=== PATIENT | male | born 1995 | race African-American/Black ===

== ENCOUNTER 2019-04-01 21:05 | Inpatient (IN) | payer OTHER ==
--- NOTE | 2019-04-01 21:19 | ER Document Report ---
ED Medical Screen (RME) - General Chief Complaint: Possible Overdose Stated Complaint: POSSIBLE OVER DOSE Time Seen by Provider: 04/01/19 21:14 Mode of Arrival: Wheelchair Information source: Patient, Relative Notes: 23-year-old male presented to ED for attempted suicide with 2 bottles of Robitussin for Marky and 1450 mg Benadryl tablets tonight. and [id number] state that he was unconscious when he first got here but he is waking up more the longer he stayed here. states that the gentleman has frequent thoughts of suicide. states that they were supposed to go to a [employer] but he did not want to go so the and [id number] went to the green party came home and found him unconscious. His face was in the litter [place] and he had pulled the towel rack over on top of him. Family states that he was having a full-blown seizure when they came home from the green party. He was report biting on his tongue diaphoretic and his eyes were rolled back in his head. states that he did not have any incontinence of urine or stool he did throw up in his hands were clenched very tight. He does have a history of PTSD and was discharged from the [facility] with other than honorable discharge I have greeted and performed a rapid initial assessment of this patient. A comprehensive ED assessment and evaluation of the patient, analysis of test results and completion of medical decision making process will be conducted by an additional ED providers.
[2019-04-01 21:56] LABS: ABSOLUTE LYMPHOCYTES (AUTO) 1.3 10^3/uL (0.5-4.7); ABSOLUTE MONOCYTES (AUTO) 0.7 10^3/uL (0.1-1.4); ABSOLUTE NEUT (AUTO) 8.2 10^3/uL (1.7-8.2); BASOPHILS % (AUTO) 0.4 % (0-2); EOSINOPHILS % (AUTO) 0.1 % (0-6); HEMOGLOBIN 14.9 g/dL (13.5-17.0); LYMPHOCYTES % (AUTO) 12.6 % (13-45); MEAN CORPUSCULAR HGB CONC 33.1 g/dL (32.0-36.0); MEAN CORPUSCULAR VOLUME 88 fl (80-97); MONOCYTES % (AUTO) 6.9 % (3-13); PLATELET COUNT 342 10^3/uL (150-450); RED BLOOD COUNT 5.15 10^6/uL (4.35-5.55); RED CELL DISTRIBUTION WIDTH 12.5 % (11.5-14.0); TOTAL CELLS COUNTED % (AUTO) 100 %; WHITE BLOOD COUNT 10.3 10^3/uL (4.0-10.5)
[2019-04-01 22:14] LABS: BLOOD UREA NITROGEN 8 mg/dL (7-20); CALCIUM 9.7 mg/dL (8.4-10.2); GLUCOSE 88 mg/dL (75-110)
[2019-04-01 22:15] LABS: ACETAMINOPHEN < 10 ug/mL (10-30); ALBUMIN 4.6 g/dL (3.5-5.0); ALCOHOL < 10 mg/dL (NONE DETECTED); ALKALINE PHOSPHATASE 60 U/L (38-126); ANION GAP 9 (5-19); ASPARTATE AMINO TRANSFERASE 25 U/L (17-59); BILIRUBIN,DIRECT 0.1 mg/dL (0.0-0.4); BILIRUBIN,TOTAL 0.3 mg/dL (0.2-1.3); CARBON DIOXIDE 27 mmol/L (22-30); CHLORIDE 105 mmol/L (98-107); POTASSIUM 3.9 mmol/L (3.6-5.0); SALICYLATE < 1.0 mg/dL (2.0-20.0); TOTAL PROTEIN 7.5 g/dL (6.3-8.2)
--- NOTE | 2019-04-01 23:15 | EKG REPORT ---
SEVERITY:- BORDERLINE ECG - SINUS TACHYCARDIA BORDERLINE T WAVE ABNORMALITIES : Confirmed by: Tomy Jo MD 01-Apr-2019 23:15:26
[2019-04-01 23:42] LABS: APPEARANCE,URINE CLOUDY; BILIRUBIN,URINE NEGATIVE (NEGATIVE); COLOR,URINE YELLOW; GLUCOSE, URINE NEGATIVE (NEGATIVE); KETONES,URINE TRACE mg/dL (NEGATIVE); LEUKOCYTE ESTERASE,URINE NEGATIVE (NEGATIVE); NITRITE,URINE NEGATIVE (NEGATIVE); PROTEIN,URINE 100 mg/dL (NEGATIVE); URINE SPECIFIC GRAVITY 1.025; UROBILINOGEN,URINE NEGATIVE mg/dL (<2.0)
[2019-04-01] MEDS ORDERED: LORAZEPAM INJ 2 MG/1 ML VIAL IV ONE (23:46)
[2019-04-01 23:57] LABS: URINE AMPHETAMINES SCREEN NEGATIVE; URINE BARBITURATES SCREEN NEGATIVE; URINE BENZODIAZEPINES SCREEN NEGATIVE; URINE COCAINE SCREEN NEGATIVE; URINE MARIJUANA (THC) SCREEN UNCONFIRMED POSITIVE; URINE METHADONE SCREEN NEGATIVE; URINE PHENCYCLIDINE SCREEN UNCONFIRMED POSITIVE
[2019-04-01] MEDS: LORAZEPAM INJ 2 MG/1 ML VIAL ONE (23:57)
[2019-04-02] MEDS ORDERED: NORMAL SALINE 1000 ML 1,000 ML IV ONE (00:04)
[2019-04-02] MEDS ORDERED: LORAZEPAM INJ 2 MG/1 ML VIAL IV ONE (00:32)
[2019-04-02] MEDS: LORAZEPAM INJ 2 MG/1 ML VIAL ONE (00:46)
--- NOTE | 2019-04-02 01:16 | ER Document Report ---
Entered by EVELYN SWANSON SCRIBE 04/01/19 [id number] Acting as scribe for:GABE MAYA DO ED Psych Disorder / Suicide - General Chief Complaint: Overdose Stated Complaint: POSSIBLE OVER DOSE Time Seen by Provider: 04/01/19 21:14 Mode of Arrival: Wheelchair Information source: Relative Cannot obtain history due to: Altered mental status Notes: Patient is a 23-year-old male who presents to the emergency department today for an overdose of "#14 50mg Benadryl, 2 bottles of children's Robitussin, and one four pat" per family. Family states that the patient has been depressed for quite some time and frequently takes Robitussin and Benadryl "to get high". Patient is hallucinating and is unable to really provide any meaningful history. Family states that the patient has never explicitly stated that he is attempting to kill himself however they state that he has mentioned on multiple occasions that he "would not mind if he never woke up" from the drugs. Family reports that they left the patient home alone today at 5 PM to go to a [employer], they returned at 7:30 PM the same night to the patient "face down in a litter box actively seizing". Family describes the seizure as the "patient was on the floor, eyes rolled back in his head, jaw was clenched, and he was shaking". Family states the patient had two more seizures prior to arrival here. They state that they "picked him up and put him in the car and brought him here because he does not have insurance and they did not want to get a bill for the ambulance." Family reports that the patient drinks occasionally and has never been in alcohol withdrawal to their knowledge. TRAVEL OUTSIDE OF THE [place] IN LAST 30 DAYS: No - Related Data Allergies/Adverse Reactions: No Known Allergies Allergy (Unverified 04/02/19 00:19) Past Medical History - General Information source: Relative Cannot obtain history due to: Altered mental status - Social History Smoking Status: Current Every Day Smoker Cigarette use (# per day): No - vape Chew tobacco use (# tins/day): No Frequency of alcohol use: Occasional Drug Abuse: Marijuana Lives with: Family, Spouse/Significant other Family History: Reviewed & Not Pertinent Patient has suicidal ideation: Yes Patient has homicidal ideation: No Psychiatric Medical History: Reports: Hx Depression Past Surgical History: Reports: Hx Oral Surgery - wisdom teeth extracted Review of Systems - Review of Systems -: Yes ROS unobtainable due to patient's medical condition - Altered mental status Physical Exam - Vital signs Vitals: Temp Pulse Resp BP Pulse Ox 98.1 F 84 16 127/92 H 99 04/01/19 23:15 04/01/19 23:15 04/01/19 23:15 04/01/19 23:15 04/01/19 23:15 Interpretation: Tachycardic - General General appearance: Alert In distress: Mild - Respiratory Respiratory status: No respiratory distress Chest status: Nontender Breath sounds: Normal - Cardiovascular Rhythm: Regular, Tachycardia - Abdominal Inspection: Normal Tenderness: Nontender - Back Back: Normal - Extremities General upper extremity: Normal inspection, Nontender, Normal color, Normal ROM, Normal temperature General lower extremity: Normal inspection, Nontender, Normal color, Normal ROM, Normal temperature, Normal weight bearing. No: Toi's sign - Neurological Cognition: Confused [place] Coma Scale Eye Opening: Spontaneous Roberto Coma Scale Verbal: Confused [place] Coma Scale Motor: Obeys Commands [place] Coma Scale Total: 14 Speech: Normal - Psychological Associated symptoms: Confused, Flat affect, Visual hallucinations - Skin Skin Moisture: Diaphoretic Course - Re-evaluation Re-evalutation: 04/02/19 00:25 Patient discussed with area development consultant, Dr. Boss. Recommends admission to ICU. States to discuss with Dr. Tracy. 04/02/19 00:[address] Tracy. Will be admitted to ICU. Patient is a 23-year-old male who apparently took fourteen Benadryl 50mg tablets, 2 bottles of Robitussin, for local, and possibly Kratom prior to arrival. Patient is able to answer questions at times and then appears that he is hallucinating in the room. Patient had seizures prior to arrival. Some tremulousness in the emergency department but no seizure activity. He is protecting his airway. EKG with QTC of 460 and then 470. No QRS prolongation. QRS is 98 both EKGs done so far. Patient was discussed with poison control who recommended seizure precautions, Ativan as needed, admission to ICU. Patient was discussed with area development consultant and hospitalist and will be admitted. Seizure precautions in place. Ativan 2 mg has been given so far. No seizure activity. Protecting airway. Vitals otherwise stable. - Vital Signs Vital signs: Temp Pulse Resp BP Pulse Ox 98.1 F 84 22 H 137/74 H 99 04/02/19 00:57 04/01/19 23:15 04/02/19 00:03 04/02/19 00:01 04/02/19 00:03 - Laboratory Result Diagrams: 04/01/19 21:46 04/01/19 21:46 Laboratory results interpreted by me: 04/01/19 04/01/19 04/01/19 21:30 21:46 21:46 Lymph % (Auto) 12.6 L Seg Neutrophils % 80.0 H Creatine Kinase Urine Protein 100 H Urine Ketones TRACE H Urine Ascorbic Acid 40 H Salicylates < 1.0 L Acetaminophen < 10 L 04/01/19 21:46 Lymph % (Auto) Seg Neutrophils % Creatine Kinase 171 H Urine Protein Urine Ketones Urine Ascorbic Acid Salicylates Acetaminophen Critical Care Note - Critical Care Note Total time excluding time spent on procedures (mins): 75 - Overdose, multiple re -evaluations, coronation with area development consultant, coordination of admission, counseling patient and family Discharge - Discharge Clinical Impression: Overdose Qualifiers: Encounter type: initial encounter Injury intent: undetermined intent Qualified Code(s): T50.904A - Poisoning by unspecified drugs, medicaments and biological substances, undetermined, initial encounter Depression Qualifiers: Depression Type: unspecified Qualified Code(s): F32.9 - Major depressive disorder, single episode, unspecified Condition: Stable Disposition: ADMITTED INPATIENT Admitting Provider: Rossana (Hospitalist) Unit Admitted: ICU I personally performed the services described in the documentation, reviewed and edited the documentation which was dictated to the scribe in my presence, and it accurately records my words and actions.
[2019-04-02] MEDS ORDERED: MAG HYDROX/AL HYDROX/SIMETH SUSP 30 ML UDCUP PO PRN (02:09)
[2019-04-02] MEDS ORDERED: ONDANSETRON HCL INJ/PF 4 MG/2 ML SDV IV PRN (02:09)
[2019-04-02] MEDS ORDERED: MAGNESIUM HYDROXIDE SUSP 30 ML UDCUP PO PRN (02:09)
[2019-04-02] MEDS ORDERED: DIAZEPAM INJ 10 MG/2 ML DISP.SYRIN IV PRN (02:12)
[2019-04-02] MEDS ORDERED: ACETAMINOPHEN 325 MG TABLET PO PRN (02:12)
[2019-04-02] MEDS ORDERED: ACETAMINOPHEN 650 MG SUPP.RECT PR PRN (02:12)
[2019-04-02] MEDS ORDERED: LEVALBUTEROL HCL NEB 0.63 MG/3 ML AMPUL NEB PRN (02:12)
[2019-04-02] MEDS ORDERED: NICOTINE 21 MG/24 HR PATCH.TD24 TD PRN (02:12)
--- NOTE | 2019-04-02 03:45 | PDOC H&P ---
History of Present Illness Admission Date/PCP: 04/02/19 01:24 No local PCP Patient complains of: Intentional overdose History of Present Illness: ISABELL NEW is a 23 year old male who took an intentional overdose of 700 mg of Benadryl and 2 full bottles of children's Robitussin and a another unknown agent while at home in front of his family. He was reportedly taking the medication to get high and according to family members he has never been suicidal though he has expressed that he would not mind if he were to while taking drugs. Sometime later after ingestion of the drugs noted above, he began having tonic-clonic seizures with loss of responsiveness, witnessed by several family members. Family members and loaded him into the car and brought him to the hospital. Patient is hallucinating and unable to provide meaningful input into his medical status. They deny prior similar episodes of seizure although his abuse of medications is frequent. They have not identified any other aggravating or ameliorating factors for the patient's acute seizure activity. Past Medical History Past Medical History: Due to the patient's current hallucinations and encephalopathic status all information is obtained from the best available sources including family members and records. Cardiac Medical History: Denies: Coronary Artery Disease, Hypertension Pulmonary Medical History: Denies: Asthma, Chronic Obstructive Pulmonary Disease (COPD) EENT Medical History: Denies: Cataracts, Nose - Allergic rhinitis Neurological Medical History: Denies: Multiple Sclerosis, Seizures Endocrine Medical History: Denies: Diabetes Mellitus Type 1, Hyperthyroidism, Hypothyroidism Renal/ Medical History: Denies: Chronic Kidney Disease, Nephrolithiasis Malignancy Medical History: Reports: None GI Medical History: Denies: Cirrhosis, Hepatitis Musculoskeltal Medical History: Denies: Arthritis, Gout Skin Medical History: Denies: Eczema, Psoriasis Psychiatric Medical History: Reports: Depression, Substance Abuse, Tobacco Dependency Denies: Alcohol Dependency Traumatic Medical History: Reports: None Hematology: Denies: Anemia, Bleeding Tendencies Infectious Medical History: Reports: None Past Surgical History Past Surgical History: Due to the patient's current hallucinations and encephalopathic status all information is obtained from the best available sources including family members and records. Past Surgical History: Reports: None Social History Lives with: Family, Spouse/Significant other Smoking Status: Current Every Day Smoker Electronic Cigarette use?: Yes Frequency of Alcohol Use: Rare Hx Recreational Drug Use: Yes Drugs: Marijuana Hx Prescription Drug Abuse: No Past Social History Note: Due to the patient's current hallucinations and encephalopathic status all information is obtained from the best available sources including family members and records. Family History Family History: Reviewed & Not Pertinent, Hypertension Family History: Due to the patient's current hallucinations and encephalopathic status all information is obtained from the best available sources including family members and records. Parental Family History Reviewed: Yes Children Family History Reviewed: No Sibling(s) Family History Reviewed.: Yes Medication/Allergy Allergies/Adverse Reactions: No Known Allergies Allergy (Unverified 04/02/19 00:19) Review of Systems ROS unobtainable: Due to mental status - Acute encephalopathy with hallucinations Physical Exam Vital Signs: Temp Pulse Resp BP Pulse Ox 98.1 F 84 13 137/74 H 99 04/02/19 00:57 04/01/19 23:15 04/02/19 01:00 04/02/19 00:01 04/02/19 01:00 Intake & Output 03/31/19 04/01/19 04/02/19 23:59 23:59 23:59 Intake Total 1000 Balance 1000 Weight 63.503 kg General appearance: PRESENT: no acute distress, cooperative - Reasonably cooperative except when hallucinating, other - Actively hallucinating Head exam: PRESENT: atraumatic, normocephalic Eye exam: PRESENT: conjunctiva pink. ABSENT: conjunctival injection, scleral icterus Ear exam: PRESENT: normal external ear exam. ABSENT: bleeding, drainage Mouth exam: PRESENT: dry mucosa, neck supple Neck exam: ABSENT: thyromegaly, tracheal deviation Respiratory exam: PRESENT: clear to auscultation wen, symmetrical, unlabored Cardiovascular exam: PRESENT: RRR. ABSENT: clicks, gallop, rubs Pulses: PRESENT: normal radial pulses, normal dorsalis pedis pul Vascular exam: PRESENT: normal capillary refill. ABSENT: pallor GI/Abdominal exam: PRESENT: normal bowel sounds, soft Rectal exam: PRESENT: deferred Extremities exam: ABSENT: joint swelling, pedal edema Musculoskeletal exam: ABSENT: deformity, dislocation Neurological exam: PRESENT: altered - Hallucinating, other - Disoriented Psychiatric exam: PRESENT: depressed, other - Blunted affect Skin exam: PRESENT: dry, intact, warm. ABSENT: jaundice, rash, urticaria Results Laboratory Results: 04/01/19 21:46 04/01/19 21:46 04/01/19 04/01/19 04/01/19 21:30 21:46 21:46 WBC 10.3 RBC 5.15 Hgb 14.9 Hct 45.0 MCV 88 MCH 29.0 MCHC 33.1 RDW 12.5 Plt Count 342 Seg Neutrophils % 80.0 H Sodium 141.2 Potassium 3.9 Chloride 105 Carbon Dioxide 27 Anion Gap 9 BUN 8 Creatinine 1.02 Est GFR ( Amer) > 60 Glucose 88 Calcium 9.7 Total Bilirubin 0.3 AST 25 Alkaline Phosphatase 60 Total Protein 7.5 Albumin 4.6 Urine Color YELLOW Urine Appearance CLOUDY Urine pH 5.0 Ur Specific [place] 1.025 Urine Protein 100 H Urine Glucose (UA) NEGATIVE Urine Ketones TRACE H Urine Blood NEGATIVE Urine Nitrite NEGATIVE Ur Leukocyte Esterase NEGATIVE Urine WBC (Auto) 5 Urine RBC (Auto) 1 04/01/19 21:46 Creatine Kinase 171 H Assessment and Plan - Diagnosis (1) Overdose Qualifiers: Encounter type: initial encounter Injury intent: undetermined intent Qualified Code(s): T50.904A - Poisoning by unspecified drugs, medicaments and biological substances, undetermined, initial encounter Is this a current diagnosis for this admission?: Yes (2) Depression Qualifiers: Depression Type: unspecified Qualified Code(s): F32.9 - Major depressive disorder, single episode, unspecified Is this a current diagnosis for this admission?: Yes (3) Tobacco use disorder, severe, dependence Is this a current diagnosis for this admission?: Yes (4) Cannabis abuse Is this a current diagnosis for this admission?: Yes - Plan Summary Summary: Patient will be admitted to the ICU for routine symptomatic and supportive cares. He will be given IV fluids and monitored closely on a hardware monitor. He will receive Valium 5 mg IV every 6 hours for 4 doses and will also have available Valium 10 mg IV nightly hour PRN seizure activity. Patient will be taken over by the mineral economist service in the morning. Stock Raiser service is already aware of this patient. - Time Time Spent with patient: 25-34 minutes Medications reviewed and adjusted accordingly: No - No home meds Anticipated discharge: Home - Inpatient Certification Based on my medical assessment, after consideration of the patient's comorbidities, presenting symptoms, or acuity I expect that the services needed warrant INPATIENT care.: Yes I certify that my determination is in accordance with my understanding of Medicare's requirements for reasonable and necessary INPATIENT services [42 CFR 412.3e].: Yes Medical Necessity: Need Close Monitoring Due to Risk of Patient Decompensation, Need For IV Fluids, Need For Continuous Telemetry Monitoring, Need for Neurological Checks, Risk of Complication if Not Cared For in Hospital, Risk of Diagnosis Which Will Require Inpatient Eval/Care/Monitoring
[2019-04-02] MEDS ORDERED: INFLUENZA QUAD (6MOS+) 2019-20 VAC 0.5 ML SYR IM ONE (03:54)
[2019-04-02] MEDS: HEPARIN SOD (PORCINE) 5,000 UNIT/ML 1 ML VIAL SUBCUT SCH ×2 (05:22→14:10)
[2019-04-02] MEDS ORDERED: DIAZEPAM INJ 10 MG/2 ML DISP.SYRIN IV SCH (06:00)
--- NOTE | 2019-04-02 06:33 | EKG REPORT ---
SEVERITY:- BORDERLINE ECG - SINUS TACHYCARDIA BORDERLINE T WAVE ABNORMALITIES BORDERLINE PROLONGED QT INTERVAL : Confirmed by: Tomy Jo MD 02-Apr-2019 06:32:57
[2019-04-02 07:12] LABS: HEMATOCRIT 38.6 % (37.9-51.0); MEAN CORPUSCULAR HEMOGLOBIN 28.6 pg (27.0-33.4); MEAN CORPUSCULAR VOLUME 87 fl (80-97); PLATELET COUNT 301 10^3/uL (150-450); RED BLOOD COUNT 4.45 10^6/uL (4.35-5.55); RED CELL DISTRIBUTION WIDTH 12.3 % (11.5-14.0)
[2019-04-02 07:53] LABS: HEMOGLOBIN 12.7 g/dL (13.5-17.0)
[2019-04-02] MEDS ORDERED: LORAZEPAM INJ 2 MG/1 ML VIAL IV PRN (07:55)
[2019-04-02 08:01] LABS: ALBUMIN 3.4 g/dL (3.5-5.0); ALKALINE PHOSPHATASE 45 U/L (38-126); ASPARTATE AMINO TRANSFERASE 20 U/L (17-59); BILIRUBIN,DIRECT 0.1 mg/dL (0.0-0.4); BILIRUBIN,TOTAL 0.6 mg/dL (0.2-1.3); BLOOD UREA NITROGEN 7 mg/dL (7-20); CALCIUM 9.2 mg/dL (8.4-10.2); CARBON DIOXIDE 30 mmol/L (22-30); CREATINE KINASE 265 U/L (55-170); GLUCOSE 96 mg/dL (75-110); POTASSIUM 4.3 mmol/L (3.6-5.0)
[2019-04-02 08:06] LABS: CHLORIDE 104 mmol/L (98-107)
[2019-04-02 08:12] LABS: ANION GAP 4 (5-19)
--- NOTE | 2019-04-02 09:16 | PDOC PROGRESS REPORT ---
Subjective Progress Note for:: 04/02/19 Subjective:: Critical Care Progress Note. Pt has had no further seizures. Has no complaints today. Reason For Visit: ACUTE MULTIDRUG OVERDOSE,SEIZURES Physical Exam Vital Signs: Temp Pulse Resp BP Pulse Ox 98.3 F 97 12 103/62 99 04/02/19 03:47 04/02/19 03:47 04/02/19 06:45 04/02/19 06:45 04/02/19 06:45 Intake & Output 04/01/19 04/02/19 04/03/19 06:59 06:59 06:59 Intake Total 1000 Balance 1000 Weight 85.5 kg General appearance: PRESENT: no acute distress, well-developed, well-nourished Head exam: PRESENT: atraumatic, normocephalic Respiratory exam: PRESENT: clear to auscultation wen, unlabored Cardiovascular exam: PRESENT: RRR GI/Abdominal exam: PRESENT: soft Musculoskeletal exam: PRESENT: normal inspection Psychiatric exam: PRESENT: appropriate affect Results Laboratory Results: 04/02/19 06:50 04/02/19 06:50 04/01/19 04/01/19 04/01/19 21:30 21:46 21:46 WBC 10.3 RBC 5.15 Hgb 14.9 Hct 45.0 MCV 88 MCH 29.0 MCHC 33.1 RDW 12.5 Plt Count 342 Seg Neutrophils % 80.0 H Sodium 141.2 Potassium 3.9 Chloride 105 Carbon Dioxide 27 Anion Gap 9 BUN 8 Creatinine 1.02 Est GFR ( Amer) > 60 Glucose 88 Calcium 9.7 Total Bilirubin 0.3 AST 25 Alkaline Phosphatase 60 Total Protein 7.5 Albumin 4.6 Urine Color YELLOW Urine Appearance CLOUDY Urine pH 5.0 Ur Specific [place] 1.025 Urine Protein 100 H Urine Glucose (UA) NEGATIVE Urine Ketones TRACE H Urine Blood NEGATIVE Urine Nitrite NEGATIVE Ur Leukocyte Esterase NEGATIVE Urine WBC (Auto) 5 Urine RBC (Auto) 1 04/02/19 04/02/19 06:50 06:50 WBC 21.0 H D RBC 4.45 Hgb 12.7 L D Hct 38.6 MCV 87 MCH 28.6 MCHC 33.0 RDW 12.3 Plt Count 301 Seg Neutrophils % Sodium 138.1 Potassium 4.3 Chloride 104 Carbon Dioxide 30 Anion Gap 4 L BUN 7 Creatinine 0.93 Est GFR ( Amer) > 60 Glucose 96 Calcium 9.2 Total Bilirubin 0.6 AST 20 Alkaline Phosphatase 45 Total Protein 6.0 L Albumin 3.4 L Urine Color Urine Appearance Urine pH Ur Specific [place] Urine Protein Urine Glucose (UA) Urine Ketones Urine Blood Urine Nitrite Ur Leukocyte Esterase Urine WBC (Auto) Urine RBC (Auto) 04/01/19 04/02/19 21:46 06:50 Creatine Kinase 171 H 265 H Assessment & Plan - Diagnosis (1) Drug overdose Qualifiers: Encounter type: initial encounter Injury intent: accidental or unintentional Qualified Code(s): T50.901A - Poisoning by unspecified drugs, medicaments and biological substances, accidental (unintentional), initial encounter Is this a current diagnosis for this admission?: Yes (2) Seizure Is this a current diagnosis for this admission?: Yes (3) Drug abuse Is this a current diagnosis for this admission?: Yes (4) Depression Qualifiers: Depression Type: unspecified Qualified Code(s): F32.9 - Major depressive disorder, single episode, unspecified Is this a current diagnosis for this admission?: Yes - Time Time Spent with patient: 25-34 minutes Level of Care: ICU Provider Note Provider Note: Assesment: 23 yo man with depression, drug abuse with THC, presents to the ED with seizures after overdosing on benadryl, robitusson, and kratom, leukocytosis, possible aspiration PNA Plan: 1. Respiratory: stable on RA 2. CV: heart rate and BP acceptable 3. Neuro: seizures due to drug intoxication. Resolved. No further seizures. Continue prn ativan. Seizure precautions 4. Psych: depression, drug abuse and overdose. Psych consult. Suicide precautions 5. ID:[id number]. Possible aspiration PNA. Will start rocephin. Will check CXR and blood cultures 6. Nutrition: regular diet 7. Prophylaxis: sq heparin 8. Disposition: stable for transfer to regular bed
[2019-04-02] MEDS ORDERED: DOCUSATE SODIUM 100 MG CAPSULE PO SCH (10:00)
[2019-04-02] MEDS ORDERED: FAMOTIDINE INJ/PF 20 MG/2 ML SDV IV SCH (10:00)
--- NOTE | 2019-04-02 10:26 | RADIOLOGY REPORT (SQ) ---
EXAM DESCRIPTION: CHEST SINGLE VIEW COMPLETED DATE/TIME: 04/02/2019 10:00 am REASON FOR STUDY: leukocytosis COMPARISON: None. EXAM PARAMETERS: NUMBER OF VIEWS: One view. TECHNIQUE: Single frontal radiographic view of the chest acquired. RADIATION DOSE: NA LIMITATIONS: None. FINDINGS: LUNGS AND PLEURA: No opacities, masses or pneumothorax. No pleural effusion. MEDIASTINUM AND HILAR STRUCTURES: No masses. Contour normal. HEART AND VASCULAR STRUCTURES: Heart normal in size. Normal vasculature. BONES: No acute findings. HARDWARE: None in the chest. OTHER: No other significant finding. IMPRESSION: NO ACUTE RADIOGRAPHIC FINDING IN THE CHEST. TECHNICAL DOCUMENTATION: JOB ID: [id number] [employer]- All Rights Reserved Reading location - IP/workstation name: [email or web address]
[2019-04-02] MEDS: CEFTRIAXONE 1 GM/D5W RTU 1 GM/50 ML RTUPB IV SCH (12:55)
[2019-04-02] MEDS ORDERED: HALOPERIDOL LACTATE INJ 5 MG/1 ML VIAL ONE (14:10)
[2019-04-02] MEDS ORDERED: HALOPERIDOL LACTATE INJ 5 MG/1 ML VIAL IV PRN (14:10)
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
[2019-04-02] MEDS: BUSPIRONE HCL 10 MG TABLET PO SCH (18:14)
[2019-04-02] MEDS: VENLAFAXINE HCL 37.5 MG CAP.SR.24H PO SCH (19:00)
[2019-04-03] MEDS: BUSPIRONE HCL 10 MG TABLET PO SCH ×3 (03:14→21:50)
[2019-04-03] MEDS: HEPARIN SOD (PORCINE) 5,000 UNIT/ML 1 ML VIAL SUBCUT SCH ×4 (03:15→21:51)
[2019-04-03 04:19] LABS: ABSOLUTE EOSINOPHILS # (AUTO) 0.2 10^3/uL (0.0-0.6); ABSOLUTE LYMPHOCYTES (AUTO) 2.1 10^3/uL (0.5-4.7); ABSOLUTE NEUT (AUTO) 7.6 10^3/uL (1.7-8.2); BASOPHILS % (AUTO) 0.2 % (0-2); EOSINOPHILS % (AUTO) 1.7 % (0-6); HEMATOCRIT 38.4 % (37.9-51.0); HEMOGLOBIN 12.8 g/dL (13.5-17.0); LYMPHOCYTES % (AUTO) 19.5 % (13-45); MEAN CORPUSCULAR HEMOGLOBIN 29.1 pg (27.0-33.4); MEAN CORPUSCULAR HGB CONC 33.4 g/dL (32.0-36.0); MEAN CORPUSCULAR VOLUME 87 fl (80-97); MONOCYTES % (AUTO) 8.8 % (3-13); PLATELET COUNT 281 10^3/uL (150-450); RED CELL DISTRIBUTION WIDTH 12.4 % (11.5-14.0); SEGMENTED NEUTROPHILS % (AUTO) 69.8 % (42-78); TOTAL CELLS COUNTED % (AUTO) 100 %; WHITE BLOOD COUNT 10.8 10^3/uL (4.0-10.5)
[2019-04-03 04:37] LABS: BLOOD UREA NITROGEN 10 mg/dL (7-20); CALCIUM 9.2 mg/dL (8.4-10.2); CARBON DIOXIDE 30 mmol/L (22-30); GLUCOSE 83 mg/dL (75-110)
[2019-04-03 04:47] LABS: ANION GAP 5 (5-19); CHLORIDE 106 mmol/L (98-107); POTASSIUM 4.2 mmol/L (3.6-5.0)
--- NOTE | 2019-04-03 09:57 | PDOC PROGRESS REPORT ---
Subjective Progress Note for:: 04/03/19 Subjective:: Critical Care Progress Note. Pt remains in ICU awaiting a medical bed. Had an episode of agitation with an explosive outburst yesterday and required a dose of haldol for sedations. Reason For Visit: ACUTE MULTIDRUG OVERDOSE,SEIZURES Physical Exam Vital Signs: Temp Pulse Resp BP Pulse Ox 97.8 F 63 13 91/53 L 100 04/03/19 08:00 04/03/19 08:00 04/03/19 08:00 04/03/19 08:00 04/03/19 08:00 Intake & Output 04/02/19 04/03/19 04/04/19 06:59 06:59 05:59 Intake Total 1000 50 Output Total 1125 Balance 1000 -1075 Weight 85.5 kg 85.5 kg General appearance: PRESENT: no acute distress, well-developed, well-nourished, other - asleep, but easily arousable Head exam: PRESENT: atraumatic, normocephalic Respiratory exam: PRESENT: clear to auscultation wen, unlabored Cardiovascular exam: PRESENT: RRR GI/Abdominal exam: PRESENT: soft Musculoskeletal exam: PRESENT: normal inspection Results Laboratory Results: 04/03/19 03:52 04/03/19 03:52 04/03/19 04/03/19 03:52 03:52 WBC 10.8 H RBC 4.40 Hgb 12.8 L Hct 38.4 MCV 87 MCH 29.1 MCHC 33.4 RDW 12.4 Plt Count 281 Seg Neutrophils % 69.8 Sodium 141.1 Potassium 4.2 Chloride 106 Carbon Dioxide 30 Anion Gap 5 BUN 10 Creatinine 1.10 Est GFR ( Amer) > 60 Glucose 83 Calcium 9.2 04/01/19 04/02/19 21:46 06:50 Creatine Kinase 171 H 265 H Impressions: Chest X-Ray 04/02/19 09:08 IMPRESSION: NO ACUTE RADIOGRAPHIC FINDING IN THE CHEST. Assessment & Plan - Diagnosis (1) Depression Qualifiers: Depression Type: unspecified Qualified Code(s): F32.9 - Major depressive disorder, single episode, unspecified Is this a current diagnosis for this admission?: Yes (2) Drug abuse Is this a current diagnosis for this admission?: Yes (3) Drug overdose Qualifiers: Encounter type: initial encounter Injury intent: accidental or unintentional Qualified Code(s): T50.901A - Poisoning by unspecified drugs, medicaments and biological substances, accidental (unintentional), initial encounter Is this a current diagnosis for this admission?: Yes (4) Seizure Is this a current diagnosis for this admission?: Yes (5) PTSD (post-traumatic stress disorder) Is this a current diagnosis for this admission?: Yes - Time Time Spent with patient: 15-24 minutes Level of Care: ICU Provider Note Provider Note: Assesment: 23 yo man with depression, drug abuse with THC, presents to the ED with seizures after overdosing on benadryl, robitusson, and kratom, leukocytosis Plan: 1. Respiratory: stable on RA 2. CV: heart rate and BP acceptable 3. Neuro: seizures due to drug intoxication. Resolved. No further seizures. Continue prn ativan. Seizure precautions 4. Psych: depression, drug abuse and overdose, PTSD. Psych consult. Suicide precautions. Started on effexor and buspar. Pt is involuntarily commited 5. ID:leukoctyosis, resolving. CXR negative. Cultures pending. Day 2 rocephin 6. Nutrition: regular diet 7. Prophylaxis: sq heparin 8. Disposition: Awaiting transfer to medical bed
[2019-04-03] MEDS: VENLAFAXINE HCL 37.5 MG CAP.SR.24H PO SCH (11:03)
[2019-04-03] MEDS: CEFTRIAXONE 1 GM/D5W RTU 1 GM/50 ML RTUPB IV SCH (11:04)
[2019-04-03] MEDS ORDERED: HALOPERIDOL LACTATE INJ 5 MG/1 ML VIAL ONE (11:35)
[2019-04-03] MEDS ORDERED: HALOPERIDOL LACTATE INJ 5 MG/1 ML VIAL IV PRN (12:42)
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
--- NOTE | 2019-04-03 17:55 | PSYCHOLOGICAL NOTE ---
Psych Note - Psych Note Date seen by psych provider: 04/03/19 Psych Note: DSM Diagnosis: Per report, PTSD Substance Use Disorder up dated Medication recommendations per [facility] contracted psychiatrist Dr. Jonah MARTINEZ is as follows: Please discontinue Ativan and Buspar Please decrease Haldol to 5 mg every 4 scheduled Please add Cogentin 1 mg daily please add Vistaril 50 mg every 6 hours as needed please increase Effexor 37.5MG to twice daily Impression/Plan: Patient is recommended to continue under IVC. Updated medication recommendations have been provided. Patient will be reevaluated. Dr. Liao was consulted to care management this patient; attending physicians in agreement with recommendations and disposition
[2019-04-04 04:31] LABS: ABSOLUTE EOSINOPHILS # (AUTO) 0.2 10^3/uL (0.0-0.6); ABSOLUTE LYMPHOCYTES (AUTO) 1.7 10^3/uL (0.5-4.7); ABSOLUTE MONOCYTES (AUTO) 0.8 10^3/uL (0.1-1.4); ABSOLUTE NEUT (AUTO) 5.7 10^3/uL (1.7-8.2); BASOPHILS % (AUTO) 0.3 % (0-2); EOSINOPHILS % (AUTO) 2.7 % (0-6); HEMATOCRIT 37.9 % (37.9-51.0); HEMOGLOBIN 12.5 g/dL (13.5-17.0); LYMPHOCYTES % (AUTO) 20.4 % (13-45); MEAN CORPUSCULAR HEMOGLOBIN 28.6 pg (27.0-33.4); MEAN CORPUSCULAR HGB CONC 32.9 g/dL (32.0-36.0); MEAN CORPUSCULAR VOLUME 87 fl (80-97); MONOCYTES % (AUTO) 9.4 % (3-13); PLATELET COUNT 286 10^3/uL (150-450); RED BLOOD COUNT 4.36 10^6/uL (4.35-5.55); RED CELL DISTRIBUTION WIDTH 12.1 % (11.5-14.0); SEGMENTED NEUTROPHILS % (AUTO) 67.2 % (42-78); TOTAL CELLS COUNTED % (AUTO) 100 %; WHITE BLOOD COUNT 8.5 10^3/uL (4.0-10.5)
[2019-04-04 04:37] LABS: ANION GAP 8 (5-19); BLOOD UREA NITROGEN 7 mg/dL (7-20); CARBON DIOXIDE 24 mmol/L (22-30); CHLORIDE 107 mmol/L (98-107); GLUCOSE 98 mg/dL (75-110)
[2019-04-04] MEDS: HEPARIN SOD (PORCINE) 5,000 UNIT/ML 1 ML VIAL SUBCUT SCH ×3 (05:04→21:46)
[2019-04-04] MEDS ORDERED: HYDROXYZINE HCL INJ 50 MG/1 ML VIAL IM PRN (07:23)
[2019-04-04] MEDS: HALOPERIDOL LACTATE INJ 5 MG/1 ML VIAL IV SCH ×5 (08:05→23:58)
[2019-04-04] MEDS ORDERED: LORAZEPAM INJ 2 MG/1 ML VIAL IV PRN (08:34)
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
[2019-04-04] MEDS: CEFTRIAXONE 1 GM/D5W RTU 1 GM/50 ML RTUPB IV SCH (09:36)
[2019-04-04] MEDS: BENZTROPINE MESYLATE 1 MG TABLET PO SCH (09:37)
[2019-04-04] MEDS: VENLAFAXINE HCL 25 MG TABLET PO SCH ×2 (09:43→21:46)
[2019-04-04] MEDS ORDERED: VENLAFAXINE HCL 25 MG TABLET PO SCH (11:00)
[2019-04-05 04:15] LABS: ABSOLUTE EOSINOPHILS # (AUTO) 0.1 10^3/uL (0.0-0.6); ABSOLUTE LYMPHOCYTES (AUTO) 1.6 10^3/uL (0.5-4.7); ABSOLUTE MONOCYTES (AUTO) 0.7 10^3/uL (0.1-1.4); ABSOLUTE NEUT (AUTO) 4.8 10^3/uL (1.7-8.2); BASOPHILS % (AUTO) 0.5 % (0-2); HEMATOCRIT 39.4 % (37.9-51.0); HEMOGLOBIN 12.9 g/dL (13.5-17.0); LYMPHOCYTES % (AUTO) 22.1 % (13-45); MEAN CORPUSCULAR HEMOGLOBIN 28.6 pg (27.0-33.4); MEAN CORPUSCULAR HGB CONC 32.8 g/dL (32.0-36.0); MEAN CORPUSCULAR VOLUME 87 fl (80-97); PLATELET COUNT 294 10^3/uL (150-450); RED BLOOD COUNT 4.53 10^6/uL (4.35-5.55); RED CELL DISTRIBUTION WIDTH 12.2 % (11.5-14.0); SEGMENTED NEUTROPHILS % (AUTO) 65.4 % (42-78); TOTAL CELLS COUNTED % (AUTO) 100 %; WHITE BLOOD COUNT 7.3 10^3/uL (4.0-10.5)
[2019-04-05 04:30] LABS: ANION GAP 10 (5-19); BLOOD UREA NITROGEN 5 mg/dL (7-20); CALCIUM 9.4 mg/dL (8.4-10.2); CARBON DIOXIDE 26 mmol/L (22-30); CHLORIDE 102 mmol/L (98-107); GLUCOSE 76 mg/dL (75-110); POTASSIUM 3.4 mmol/L (3.6-5.0)
[2019-04-05] MEDS: HALOPERIDOL LACTATE INJ 5 MG/1 ML VIAL IV SCH ×5 (05:00→20:30)
[2019-04-05] MEDS: HEPARIN SOD (PORCINE) 5,000 UNIT/ML 1 ML VIAL SUBCUT SCH ×3 (06:19→21:41)
--- NOTE | 2019-04-05 09:21 | PDOC PROGRESS REPORT ---
Subjective Progress Note for:: 04/05/19 Subjective:: More calm. Not quite appropriate yet. Reason For Visit: ACUTE MULTIDRUG OVERDOSE,SEIZURES Physical Exam Vital Signs: Temp Pulse Resp BP Pulse Ox 97.9 F 68 14 137/85 H 99 04/05/19 08:00 04/05/19 08:00 04/05/19 08:00 04/05/19 08:00 04/05/19 08:00 Intake & Output 04/04/19 04/05/19 04/06/19 06:59 06:59 06:59 Intake Total 225 Output Total 525 75 Balance -300 -75 Weight 80.5 kg General appearance: PRESENT: no acute distress, well-developed, well-nourished Head exam: PRESENT: atraumatic, normocephalic Eye exam: PRESENT: conjunctiva pink, EOMI, PERRLA. ABSENT: scleral icterus Ear exam: PRESENT: normal external ear exam Mouth exam: PRESENT: moist, tongue midline Respiratory exam: PRESENT: clear to auscultation wen Cardiovascular exam: PRESENT: RRR. ABSENT: diastolic murmur, rubs, systolic murmur Vascular exam: PRESENT: normal capillary refill GI/Abdominal exam: PRESENT: soft Rectal exam: PRESENT: deferred Extremities exam: PRESENT: full ROM Musculoskeletal exam: PRESENT: normal inspection Neurological exam: PRESENT: altered, awake Skin exam: PRESENT: dry, intact, warm. ABSENT: cyanosis, rash Results Laboratory Results: 04/05/19 03:57 04/05/19 03:57 04/04/19 04/05/19 04/05/19 03:53 03:57 03:57 WBC 7.3 RBC 4.53 Hgb 12.9 L Hct 39.4 MCV 87 MCH 28.6 MCHC 32.8 RDW 12.2 Plt Count 294 Seg Neutrophils % 65.4 Sodium 138.1 Potassium 3.4 L Chloride 102 Carbon Dioxide 26 Anion Gap 10 BUN 5 L Creatinine 0.81 Est GFR ( Amer) > 60 Glucose 76 Calcium 9.4 Magnesium 1.9 04/01/19 04/02/19 21:46 06:50 Creatine Kinase 171 H 265 H Impressions: Chest X-Ray 04/02/19 09:08 IMPRESSION: NO ACUTE RADIOGRAPHIC FINDING IN THE CHEST. Assessment & Plan - Diagnosis (1) Overdose Qualifiers: Encounter type: initial encounter Injury intent: undetermined intent Qualified Code(s): T50.904A - Poisoning by unspecified drugs, medicaments and biological substances, undetermined, initial encounter Is this a current diagnosis for this admission?: Yes Plan: Does not appear to be intentional. Benedryl likely cause of mental status change and seizures. (2) PTSD (post-traumatic stress disorder) Is this a current diagnosis for this admission?: Yes Plan: Nature and extent not known at the moment. (3) Seizure Is this a current diagnosis for this admission?: Yes Plan: No recurrence, should be of a risk as benedryl is metabolized. (4) Violent behavior Is this a current diagnosis for this admission?: Yes Plan: Again secondary to baseline issues and benedrl. If Precedex can come off he can be downgraged. - Time Time Spent with patient: 35 or more minutes Total Critical Time (Minutes): 35 Level of Care: ICU Medications reviewed and adjusted accordingly: Yes Anticipated discharge: Home Within: within 72 hours - Inpatient Certification Based on my medical assessment, after consideration of the patient's comorbidities, presenting symptoms, or acuity I expect that the services needed warrant INPATIENT care.: Yes I certify that my determination is in accordance with my understanding of Medicare's requirements for reasonable and necessary INPATIENT services [42 CFR 412.3e].: Yes Medical Necessity: Failure to Improve With Outpatient Therapy, Significant Comorbidiites Make Outpatient Treatment Too Risky, Need Close Monitoring Due to Risk of Patient Decompensation, Need For Continuous Telemetry Monitoring, Need for Neurological Checks, Risk of Complication if Not Cared For in Hospital, Risk of Diagnosis Which Will Require Inpatient Eval/Care/Monitoring
[2019-04-05] MEDS: BENZTROPINE MESYLATE 1 MG TABLET PO SCH (10:00)
[2019-04-05] MEDS: VENLAFAXINE HCL 25 MG TABLET PO SCH ×2 (10:00→21:41)
[2019-04-06] MEDS: HALOPERIDOL LACTATE INJ 5 MG/1 ML VIAL IV SCH ×6 (00:16→20:31)
[2019-04-06] MEDS: HEPARIN SOD (PORCINE) 5,000 UNIT/ML 1 ML VIAL SUBCUT SCH ×3 (05:22→22:32)
[2019-04-06] MEDS: VENLAFAXINE HCL 25 MG TABLET PO SCH ×2 (10:57→22:31)
[2019-04-06] MEDS: BENZTROPINE MESYLATE 1 MG TABLET PO SCH (10:59)
[2019-04-06] MEDS ORDERED: NORMAL SALINE 1000 ML 1,000 ML IV ONE (12:27)
--- NOTE | 2019-04-06 12:31 | PDOC PROGRESS REPORT ---
Subjective Progress Note for:: 04/06/19 Subjective:: Patient seen today in follow-up regarding recent substance overdose and seizure. Patient currently has no complaints. States he feels well. Patient acknowledges that he was in fact trying to harm himself by overdosing on Robitussin and Benadryl but states that he no longer feels the need to commit suicide. He states that he felt miserable at the time prior to admission. Patient denies history of seizures. Patient currently denies any headaches chest pain, shortness of breath, jerky involuntary movements. Patient's mother at bedside states that she would like to take Back to [place], where she has a psychiatrist who is willing to take the patient in for treatment. She states that [facility] [place] [facility] there as soon as possible. She acknowledges that patient appears back to baseline regarding his physical status. Reason For Visit: ACUTE MULTIDRUG OVERDOSE,SEIZURES Physical Exam Vital Signs: Temp Pulse Resp BP Pulse Ox 97.4 F 68 18 148/69 H 99 04/06/19 00:06 04/06/19 00:06 04/06/19 00:06 04/06/19 00:06 04/06/19 00:06 Intake & Output 04/05/19 04/06/19 04/07/19 06:59 06:59 06:59 Intake Total 225 240 Output Total 525 725 Balance -300 -485 Weight 80.5 kg 84 kg General appearance: PRESENT: no acute distress, cooperative Head exam: PRESENT: normocephalic Eye exam: PRESENT: EOMI. ABSENT: nystagmus Mouth exam: PRESENT: moist Neck exam: ABSENT: JVD Respiratory exam: PRESENT: clear to auscultation wen Cardiovascular exam: PRESENT: RRR, +S1, +S2. ABSENT: irregular rhythm GI/Abdominal exam: PRESENT: normal bowel sounds, soft. ABSENT: ascites, tenderness Rectal exam: PRESENT: deferred Musculoskeletal exam: PRESENT: ambulatory Neurological exam: PRESENT: alert, awake, oriented to person, oriented to place, oriented to time, oriented to situation, normal gait. ABSENT: motor sensory deficit Psychiatric exam: ABSENT: agitated Results Laboratory Results: 04/05/19 03:57 04/05/19 03:57 04/01/19 04/02/19 21:46 06:50 Creatine Kinase 171 H 265 H Impressions: Chest X-Ray 04/02/19 09:08 IMPRESSION: NO ACUTE RADIOGRAPHIC FINDING IN THE CHEST. Assessment and Plan - Diagnosis (1) Depression Qualifiers: Depression Type: major depressive disorder Is this a current diagnosis for this admission?: Yes Plan: -Given patient's acknowledged recent suicidal attempt, will continue to maintain patient on IVC pending psychiatric reevaluation. -Continue Haldol, Cogentin, hydroxyzine and venlafaxine as recommended per psych -Awaiting psych reevaluation to determine need for involuntary inpatient psych confinement (2) Drug overdose Qualifiers: Encounter type: initial encounter Injury intent: intentional self-harm Qualified Code(s): T50.902A - Poisoning by unspecified drugs, medicaments and biological substances, intentional self-harm, initial encounter Is this a current diagnosis for this admission?: Yes Plan: Initial overdose on Robitussin and Benadryl. Likely suicidal attempt. These substances showed have been metabolized by now (3) PTSD (post-traumatic stress disorder) Is this a current diagnosis for this admission?: Yes Plan: Possible history of PTSD. Psychiatry following. (4) Seizure Is this a current diagnosis for this admission?: Yes Plan: Likely secondary to Robitussin & Benadryl overdose. Continue to monitor is now seizure-free. No need for AED prophylaxis. (5) Tachycardia Is this a current diagnosis for this admission?: Yes Plan: Monitor vitals. 1 L normal saline bolus. EKG showing sinus tachycardia with QT interval approaching borderline high. -Go down on haldol -I suspect tachycardia likely 2/2 agitation and recent excessive substance use. - Plan Summary Summary: Patient is medically cleared for discharge to dual diagnosis/inpatient psych facility. Discussing with psych about potantial alternatives to haldol given borderline QT prolongation - Time Time Spent with patient: 25-34 minutes
[2019-04-06] MEDS ORDERED: DIPHENHYDRAMINE HCL 25 MG CAPSULE PO PRN (21:45)
[2019-04-07] MEDS ORDERED: HALOPERIDOL LACTATE INJ 5 MG/1 ML VIAL IV SCH (02:00)
[2019-04-07] MEDS: HALOPERIDOL LACTATE INJ 5 MG/1 ML VIAL IV SCH ×4 (02:29→21:11)
[2019-04-07] MEDS: HEPARIN SOD (PORCINE) 5,000 UNIT/ML 1 ML VIAL SUBCUT SCH ×3 (05:38→21:11)
[2019-04-07] MEDS: VENLAFAXINE HCL 25 MG TABLET PO SCH ×2 (09:22→21:13)
[2019-04-07] MEDS: BENZTROPINE MESYLATE 1 MG TABLET PO SCH (09:22)
--- NOTE | 2019-04-07 16:44 | PDOC PROGRESS REPORT ---
Subjective Progress Note for:: 04/07/19 Subjective:: Patient seen today in follow-up regarding recent substance overdose and seizure. Patient currently has no complaints. States he feels well. Denies feeling palpitations. Currently does not endorse agitation. Reason For Visit: ACUTE MULTIDRUG OVERDOSE,SEIZURES Physical Exam Vital Signs: Temp Pulse Resp BP Pulse Ox 98.5 F 104 H 16 130/77 H 100 04/07/19 11:35 04/07/19 11:35 04/07/19 11:35 04/07/19 11:35 04/07/19 11:35 Intake & Output 04/06/19 04/07/19 04/08/19 06:59 06:59 06:59 Intake Total 240 2456 591 Output Total 725 Balance -485 2456 591 Weight 84 kg 83.8 kg General appearance: PRESENT: no acute distress, cooperative, well-developed, well-nourished Head exam: PRESENT: normocephalic Eye exam: PRESENT: EOMI. ABSENT: nystagmus Neck exam: ABSENT: JVD Respiratory exam: PRESENT: clear to auscultation wen, symmetrical, unlabored. ABSENT: rhonchi, tachypnea, wheezes Cardiovascular exam: PRESENT: RRR, +S1, +S2, tachycardia GI/Abdominal exam: PRESENT: soft. ABSENT: distended, firm, guarding, tenderness Neurological exam: PRESENT: alert, awake, oriented to person, oriented to place, oriented to time, oriented to situation Psychiatric exam: PRESENT: normal mood Results Laboratory Results: 04/05/19 03:57 04/05/19 03:57 04/02/19 14:35 Blood Blood Culture - Final NO GROWTH IN 5 DAYS 04/02/19 14:10 Blood Blood Culture - Final NO GROWTH IN 5 DAYS 04/01/19 04/02/19 21:46 06:50 Creatine Kinase 171 H 265 H Impressions: Chest X-Ray 04/02/19 09:08 IMPRESSION: NO ACUTE RADIOGRAPHIC FINDING IN THE CHEST. Assessment and Plan - Diagnosis (1) Depression Qualifiers: Depression Type: major depressive disorder Is this a current diagnosis for this admission?: Yes Plan: -Given patient's acknowledged recent suicidal attempt, will continue to maintain patient on IVC pending psychiatric reevaluation. -Continue Haldol, Cogentin, hydroxyzine and venlafaxine as recommended per psych -Awaiting psych placement to inpatient psychiatric unit -psychiatry following on coordinating this. (2) Drug overdose Qualifiers: Encounter type: initial encounter Injury intent: intentional self-harm Qualified Code(s): T50.902A - Poisoning by unspecified drugs, medicaments and biological substances, intentional self-harm, initial encounter Is this a current diagnosis for this admission?: Yes Plan: Initial overdose on Robitussin and Benadryl. Likely suicidal attempt. (3) PTSD (post-traumatic stress disorder) Is this a current diagnosis for this admission?: Yes (4) Seizure Is this a current diagnosis for this admission?: Yes Plan: Likely secondary to Robitussin & Benadryl overdose. Continue to monitor is now seizure-free. No need for AED prophylaxis. (5) Tachycardia Is this a current diagnosis for this admission?: Yes Plan: Sinus tachycardia Mild improvement with IV fluids yesterday but seems to be brought on by anxiety EKG not showing any arrhythmia or Other concerning heart processes Wonder if there is a component of recent drug use contributing to this tachycardia - Plan Summary Summary: Patient is medically cleared for discharge to dual diagnosis/inpatient psych facility. Discussing with psych about potantial alternatives to haldol given borderline QT prolongation - Time Time Spent with patient: 15-24 minutes
--- NOTE | 2019-04-07 23:59 | EKG REPORT ---
SEVERITY:- BORDERLINE ECG - SINUS TACHYCARDIA PROBABLE LEFT ATRIAL ABNORMALITY BORDERLINE T ABNORMALITIES, INFERIOR LEADS : Confirmed by: Anton Akins 07-Apr-2019 23:58:20
--- NOTE | 2019-04-07 23:59 | EKG REPORT ---
SEVERITY:- BORDERLINE ECG - SINUS RHYTHM BORDERLINE T WAVE ABNORMALITIES : Confirmed by: Anton Akins 07-Apr-2019 23:58:13
[2019-04-08] MEDS: HALOPERIDOL LACTATE INJ 5 MG/1 ML VIAL IV SCH ×2 (03:32→09:05)
[2019-04-08] MEDS: HEPARIN SOD (PORCINE) 5,000 UNIT/ML 1 ML VIAL SUBCUT SCH ×3 (05:45→22:36)
[2019-04-08 06:01] LABS: BLOOD UREA NITROGEN 4 mg/dL (7-20); CALCIUM 9.1 mg/dL (8.4-10.2); GLUCOSE 104 mg/dL (75-110)
[2019-04-08 06:18] LABS: ANION GAP 8 (5-19); CARBON DIOXIDE 28 mmol/L (22-30); CHLORIDE 103 mmol/L (98-107); POTASSIUM 3.5 mmol/L (3.6-5.0)
[2019-04-08] MEDS ORDERED: POTASSIUM CHLORIDE 10 MEQ CAPSULE.ER PO ONE (09:00)
[2019-04-08] MEDS: BENZTROPINE MESYLATE 1 MG TABLET PO SCH (09:03)
[2019-04-08] MEDS: VENLAFAXINE HCL 25 MG TABLET PO SCH ×2 (09:03→22:35)
--- NOTE | 2019-04-08 17:28 | PDOC PROGRESS REPORT ---
Subjective Progress Note for:: 04/08/19 Subjective:: Patient is doing well today. Has no complaints at the moment. Denies any chest pain lightheadedness or dizziness. Denies suicidal ideation currently. Reason For Visit: ACUTE MULTIDRUG OVERDOSE,SEIZURES Physical Exam Vital Signs: Temp Pulse Resp BP Pulse Ox 97.3 F 75 16 133/69 H 100 04/08/19 11:22 04/08/19 11:22 04/08/19 11:22 04/08/19 11:22 04/08/19 11:22 Intake & Output 04/07/19 04/08/19 04/09/19 06:59 06:59 06:59 Intake Total 2456 1051 Balance 2456 1051 Weight 83.8 kg 83.5 kg 83.5 kg General appearance: PRESENT: no acute distress, cooperative Neck exam: ABSENT: JVD Respiratory exam: PRESENT: clear to auscultation wen Cardiovascular exam: PRESENT: RRR, +S1, +S2. ABSENT: tachycardia GI/Abdominal exam: PRESENT: normal bowel sounds Rectal exam: PRESENT: deferred Gentrourinary exam: ABSENT: ecchymosis Extremities exam: ABSENT: calf tenderness Musculoskeletal exam: PRESENT: ambulatory Neurological exam: PRESENT: alert, awake Psychiatric exam: ABSENT: agitated, anxious Results Laboratory Results: 04/05/19 03:57 04/08/19 04:14 04/08/19 04:14 Sodium 138.5 Potassium 3.5 L Chloride 103 Carbon Dioxide 28 Anion Gap 8 BUN 4 L Creatinine 0.66 Est GFR ( Amer) > 60 Glucose 104 Calcium 9.1 Magnesium 1.8 04/02/19 14:35 Blood Blood Culture - Final NO GROWTH IN 5 DAYS 04/02/19 14:10 Blood Blood Culture - Final NO GROWTH IN 5 DAYS 04/01/19 04/02/19 21:46 06:50 Creatine Kinase 171 H 265 H Impressions: Chest X-Ray 04/02/19 09:08 IMPRESSION: NO ACUTE RADIOGRAPHIC FINDING IN THE CHEST. Assessment and Plan - Diagnosis (1) Depression Qualifiers: Depression Type: major depressive disorder Is this a current diagnosis for this admission?: Yes Plan: -Given patient's acknowledged recent suicidal attempt, will continue to maintain patient on IVC pending psychiatric reevaluation. -Continue Haldol, Cogentin, hydroxyzine and venlafaxine as recommended per psych (2) Drug overdose Qualifiers: Encounter type: initial encounter Injury intent: intentional self-harm Qualified Code(s): T50.902A - Poisoning by unspecified drugs, medicaments and biological substances, intentional self-harm, initial encounter Is this a current diagnosis for this admission?: Yes (3) PTSD (post-traumatic stress disorder) Is this a current diagnosis for this admission?: Yes (4) Seizure Is this a current diagnosis for this admission?: Yes (5) Tachycardia Is this a current diagnosis for this admission?: Yes - Plan Summary Summary: Patient is medically cleared for discharge to dual diagnosis/inpatient psych facility. Currently simply awaiting bed for inpatient psychiatry - Time Time Spent with patient: Less than 15 minutes
[2019-04-08] MEDS: HALOPERIDOL LACTATE INJ 5 MG/1 ML VIAL IM SCH (17:43)
--- NOTE | 2019-04-08 21:30 | PSYCHOLOGICAL NOTE ---
Psych Note - Psych Note Date seen by psych provider: 04/08/19 Time seen by psych provider: 17:15 Psych Note: Reason for consult: Reevaluation Chart review completed. Reevaluation completed. Patient and spouse were laying on the bed together with their daughter when clinician entered the room. Clinician exchanged pleasantries and requested to speak privately with patient. Patient and spouse requested spouse remain in the room. Clinician informed patient that it was his responsibility to inform his mother of developments regarding his care. Patient was informed that his mothers incessant attempts to contact hospital staff regarding his medical and psychiatric care will be ignored, as there is no legal or clinical responsibility for hospital staff to keep her apprised of changes in his circumstance. Patient was informed that hospital staff is committed to HIS wellbeing, recovery, and safety. Patient agreed to have conversation with his mother that her behavior is not conducive to his recovery. Patient was informed that appropriate placement efforts are ongoing. Patient verbalized appreciation and understanding. Patient presents as overly agreeable with spouse. Spouse complained of mother in laws constant attempts to manipulate hospital staff and government officials into providing her with patients information that is covered under HIPPA laws. Spouse stated she has power of traffic law attorney, however stated mother in law has attempted to gain power of traffic law attorney. Patient commented only when directly engaged by clinician. Patient was observed changing his daughters unsoiled diaper, fidgeting with ice pack, and providing attention to daughter to avoid conversation with clinician. Clinician requested patient hand daughter back to spouse to gain patients undivided attention. Clinician observed spouse attempted to answer questions for patient, and patient seemed agreeable to having spouse answer for him. Clinician would defer to patient in order to force patient to answer questions and provide information. Patient expressed excitement about going to treatment. Patient denies cravings and withdrawals. Patient expressed a desire to better himself. Patient is alert and oriented to person, place, time and circumstance. Mood is euphoric with congruent affect as evidenced by smiling, laughing and engagement with clinician. Patient denies suicidal and homicidal ideation. Delusions are absent and behavior is congruent with an intact reality based presentation (i.e. organized and linear thought processes). Patient denies auditory and visual hallucinations. There is no observed behavior that suggests patient is responding to internal stimuli. Eye contact is good. Conversational speech is within normal rate, tone, and prosody. Intellectual ability appears to be within average range. Attention and concentration are fair. Insight, judgment, and impulse control are poor. DSM Diagnosis: Substance Use Disorder, severe, ongoing Possible PTSD Medication recommendations per [facility] contracted psychiatrist Dr. Jonah MARTINEZ is as follows: Haldol (IM) 5mg, twice per day scheduled Cogentin 1 mg daily Vistaril 50 mg every 6 hours as needed Effexor 37.5MG twice daily Impression/Plan: Patient is not cleared from acute psychiatric services. Patient does meet IVC criteria per [place] GS 122C. It is recommended that IVC be maintained. There is concern that patient is not being genuine with spouse, mother, and the medical and behavioral teams. Patient attempts to detach and distract himself from the situation whenever he is asked pointed questions. Patients mothers inappropriate communication with hospital staff and government officials is detrimental to patients recovery and wellbeing. Patient and spouse have spent more time and energy engaged in mitigating negative consequences from mother in laws behavior than on patients recovery. Patient has significant substance abuse and mental health concerns that will require is full thoughtful and purposeful attention. Dr. Liao was consulted on the care and management of this patient; attending physician is in agreement with recommendations and disposition.
[2019-04-09] MEDS: HEPARIN SOD (PORCINE) 5,000 UNIT/ML 1 ML VIAL SUBCUT SCH (05:44)
[2019-04-09] MEDS: BENZTROPINE MESYLATE 1 MG TABLET PO SCH (09:20)
[2019-04-09] MEDS: VENLAFAXINE HCL 25 MG TABLET PO SCH (09:20)
[2019-04-09] MEDS: HALOPERIDOL LACTATE INJ 5 MG/1 ML VIAL IM SCH (09:21)
--- NOTE | 2019-04-09 13:02 | PDOC TRANSFER SUMMARY ---
General Admission Date/PCP: 04/02/19 01:24 Resuscitation Status: Full Code - Transfer Diagnosis (1) Depression Is this a current diagnosis for this admission?: Yes (2) Drug overdose Is this a current diagnosis for this admission?: Yes (3) PTSD (post-traumatic stress disorder) Is this a current diagnosis for this admission?: Yes (4) Seizure Is this a current diagnosis for this admission?: Yes (5) Tachycardia Is this a current diagnosis for this admission?: Yes - Transfer Medications Transfer Medications: Current Medications Acetaminophen (Tylenol 325 Mg Tablet) 650 mg PO Q4HP PRN PRN Reason: For headache, pain or fever Stop: 05/02/19 02:11 Benztropine Mesylate (Cogentin 1 Mg Tablet) 1 mg PO DAILY [facility] Stop: 05/04/19 09:59 Last Admin: 04/09/19 09:20 Dose: 1 mg Documented by: Diphenhydramine HCl (Benadryl 25 Mg Capsule) 25 mg PO Q6HP PRN PRN Reason: JAW TIGHTNESS Stop: 05/06/19 21:44 Haloperidol Lactate (Haldol 5 Mg/Ml Inj 1 Ml Vial) 5 mg IM BID [facility] Stop: 05/08/19 17:59 Last Admin: 04/09/19 09:21 Dose: 5 mg Documented by: Heparin Sodium (Porcine) (Heparin Inj 5,000 Units/Ml 1 Ml Vial) 5,000 unit SUBCUT Q8 [facility] Stop: 05/02/19 05:59 Last Admin: 04/09/19 05:44 Dose: 5,000 unit Documented by: Hydroxyzine HCl (Vistaril Inj 50 Mg/1 Ml Vial) 50 mg IM Q6HP PRN PRN Reason: ANXIETY/AGITATION Stop: 05/04/19 07:22 Lorazepam (Ativan Inj 2 Mg/1 Ml Vial) 2 mg IV Q4HP PRN PRN Reason: SEIZURES Stop: 04/11/19 08:33 Nicotine (Nicoderm 21 Mg/24 Hr Transderm Patch) 1 each TD DAILYP PRN PRN Reason: WITHDRAWAL SYMPTOMS Stop: 05/02/19 02:11 Ondansetron HCl (Zofran Inj/Pf 4 Mg/2 Ml Sdv) 4 mg IV Q4HP PRN PRN Reason: FOR NAUSEA/VOMITING Stop: 05/02/19 02:08 Sodium Chloride (Saline Flush 2.5 Ml Monoject Prefil Syrin) 2.5 ml IV Q8 [facility] Stop: 05/02/19 05:59 Last Admin: 04/09/19 06:07 Dose: Not Given Documented by: Venlafaxine HCl (Effexor 25 Mg Tablet) 37.5 mg PO Q12 [facility] Stop: 05/04/19 09:59 Last Admin: 04/09/19 09:20 Dose: 37.5 mg Documented by: - Allergies Allergies/Adverse Reactions: No Known Allergies Allergy (Unverified 04/02/19 00:19) Hospital Course Hospital Course: HPI 23 year old male who took an intentional overdose of 700 mg of Benadryl and 2 full bottles of children's Robitussin and a another unknown agent while at home in front of his family. He was reportedly taking the medication to get high and according to family members he has never been suicidal though he has expressed that he would not mind if he were to while taking drugs. Sometime later after ingestion of the drugs noted above, he began having tonic-clonic seizures with loss of responsiveness, witnessed by several family members. Family members and loaded him into the car and brought him to the hospital. Patient is hallucinating and unable to provide meaningful input into his medical status. They deny prior similar episodes of seizure although his abuse of medications is frequent. They have not identified any other aggravating or ameliorating factors for the patient's acute seizure activity. Hospital course Patient was initially admitted to the ICU for frequent monitoring and neuro checks. Was given medication to help subdue for the seizures. His seizure was deemed to be likely secondary to overdose from Benadryl and Robitussin. Patient's seizures subsequently resolved the patient was taken off Precedex and agree with downgraded from the ICU to the general medical floor. Patient is back to his normal medical physical state. Patient did admit, during my first interview with him on the general medical floor, that he was trying to hurt himself by overdosing because he was having too many issues. Patient has been followed by psychiatry and has been on constant observer due to his suicidal attempt. Patient has no longer being aggressive or agitated but still appears occasionally anxious. He has been noted to be tachycardic on some occasions. EKG showed sinus tachycardia without any evidence of heart damage or ischemia. Sinus tachycardia did not respond to IV fluids. Tachycardia is very mild and his heart rate ranges from 80s to 110 without any episodes of arrhythmia. I believe this tachycardia is all due to his recent excessive use of Benadryl and Robitussin which I will have anti-muscarinic and sympathetic effect which is now wearing out of his system. I also believe this is coupled with anxiety. There is no need for any further medical action regarding this. Continue to encourage adequate hydration. Patient is being discharged on Haldol, benztropine and Effexor as recommended by psychiatry. Physical Exam Vital Signs: Temp Pulse Resp BP Pulse Ox 98.4 F 101 H 16 125/78 100 04/09/19 08:16 04/09/19 08:16 04/09/19 08:16 04/09/19 08:16 04/09/19 08:16 Intake & Output 04/08/19 04/09/19 04/10/19 06:59 06:59 06:59 Intake Total 1051 1972 Balance 1051 1972 Weight 83.5 kg 84 kg General appearance: PRESENT: no acute distress, cooperative Head exam: PRESENT: normocephalic Eye exam: PRESENT: EOMI Mouth exam: PRESENT: moist Neck exam: ABSENT: JVD Respiratory exam: PRESENT: clear to auscultation wen, symmetrical, unlabored. ABSENT: rales, rhonchi, wheezes Cardiovascular exam: PRESENT: +S1, +S2, tachycardia. ABSENT: diastolic murmur, gallop, irregular rhythm, systolic murmur Vascular exam: ABSENT: pallor GI/Abdominal exam: PRESENT: normal bowel sounds, soft. ABSENT: rigid, tenderness Rectal exam: PRESENT: deferred Extremities exam: ABSENT: calf tenderness, pedal edema Musculoskeletal exam: PRESENT: ambulatory Neurological exam: PRESENT: alert, awake, oriented to person, oriented to place, oriented to time, oriented to situation, CN II-XII grossly intact, normal gait. ABSENT: ataxia, motor sensory deficit, aphasic Psychiatric exam: PRESENT: anxious. ABSENT: agitated Results Laboratory Results: 04/05/19 03:57 04/08/19 04:14 04/01/19 04/02/19 21:46 06:50 Creatine Kinase 171 H 265 H Impressions: Chest X-Ray 04/02/19 09:08 IMPRESSION: NO ACUTE RADIOGRAPHIC FINDING IN THE CHEST.
[2019-04-09 14:06] VITALS: BP 127/74
== END 2019-04-09 14:00 | DRG 918 ==
LOC: ER 21:05 → EH 04-02 01:24 → ICU 04-02 03:15 → 4N 04-05 18:43
PROVIDERS: ADMIT Internal Medicine; ATTEND Internal Medicine
DX: T45.0X2A Poisoning by antiallergic and antiemetic drugs, intentional self-harm, initial encounter (principal); T48.3X2A Poisoning by antitussives, intentional self-harm, initial encounter; T50.992A Poisoning by other drugs, medicaments and biological substances, intentional self-harm, initial encounter; F17.299 Nicotine dependence, other tobacco product, with unspecified nicotine-induced disorders; R45.6 Violent behavior; R00.0 Tachycardia, unspecified; F12.10 Cannabis abuse, uncomplicated; Y92.239 Unspecified place in hospital as the place of occurrence of the external cause; F32.9 Major depressive disorder, single episode, unspecified; Z59.7 Insufficient social insurance and welfare support; R56.9 Unspecified convulsions; F43.10 Post-traumatic stress disorder, unspecified; Z78.1 Physical restraint status
CPT/HCPCS: 36415; 71045; 80048; 80053; 80307; 81001; 82550; 83735; 85025; 85027; 87040; 93005; 93010; 96361; 96374; 99231; 99291; 99292; J0696; J1630; J1644; J2060; J3490; J7030